=== PATIENT | female | born 1955 | race Caucasian/White ===

== ENCOUNTER → 2016-10-11 | Outpatient (CLI) | payer MEDICARE, BC ==
[2016-10-11 08:01] LABS: Basophils # (A) 0.1 k/uL (0-0.2); Basophils % (A) 1 %; CH 33.6; CHCM 33.4; Eosinophils # (A) 0.2 k/uL (0-0.7); Eosinophils % (A) 4 %; HCT 45.9 % (34.0-46.0); HDW 2.36; HGB 14.9 gm/dL (11.4-16.0); Luc % (Auto) 2; Lymphocytes # (A) 2.3 k/uL (1.0-4.8); Lymphocytes % (A) 53 %; MCH 32.7 pg (25.0-35.0); MCHC 32.4 g/dL (31.0-37.0); MCV 100.9 fL (80.0-100.0); Mean Platelet Volume 8.5; Monocytes # (A) 0.2 k/uL (0-1.0); Monocytes % (A) 5 %; Neutrophils # (A) 1.5 k/uL (1.3-7.7); Neutrophils % (A) 34 %; RBC 4.55 m/uL (3.80-5.40); RDW 12.4 % (11.5-15.5); WBC 4.3 k/uL (3.8-10.6); WBC (Perox) 4.31
[2016-10-11 08:45] LABS: ALT 58 U/L (9-52); AST 35 U/L (14-36); Alkaline Phosphatase 36 U/L (38-126); Anion Gap 9 mmol/L; Blood Urea Nitrogen 17 mg/dL (7-17); Calcium 9.6 mg/dL (8.4-10.2); Carbon Dioxide 33 mmol/L (22-30); Chloride 101 mmol/L (98-107); Cholesterol 191 mg/dL (<200); Glucose 105 mg/dL (74-99); HDL Cholesterol 30 mg/dL (40-60); Non-African American GFR(MDRD) >60 (>60 ml/min/1.73 sqM); Sodium 143 mmol/L (137-145); Total Bilirubin 0.4 mg/dL (0.2-1.3); Total Protein 7.1 g/dL (6.3-8.2)
[2016-10-11 10:24] LABS: Manual Review Performed; RBC Morphology Normal
[2016-10-11 11:49] LABS: Hemoglobin A1C 6.1 % (4.2-6.1)
== END | disposition home or self-care (01) ==
LOC: LABWHC1 06:43
PROVIDERS: ATTEND Internal Medicine Geriatric Medicine
DX: I10 Essential (primary) hypertension (principal); R73.09 Other abnormal glucose; E78.00 Pure hypercholesterolemia, unspecified
CPT/HCPCS: 36415; 80053; 80061; 83036; 84439; 84443; 85025

== ENCOUNTER → 2016-12-11 | Outpatient (CLI) | payer MEDICARE, BC ==
--- NOTE | 2016-12-11 14:58 | US ---
EXAMINATION TYPE: US carotid duplex BILAT DATE OF EXAM: 12/11/2016 COMPARISON: CT neck January 28, 2015 CLINICAL HISTORY: I65.23 Occlusion and stenosis of left carotid artery per order . Left carotid bruit on physical exam EXAM MEASUREMENTS: RIGHT: Peak Systolic Velocity (PSV) cm/sec ----- Right CCA: 90.8 ----- Right ICA: 625.8 ----- Right ECA: 305.8 ICA/CCA ratio: 6.9 RIGHT: End Diastole cm/sec ----- Right CCA: 11.7 ----- Right ICA: 164.1 ----- Right ECA: 0.0 LEFT: Peak Systolic Velocity (PSV) cm/sec ----- Left CCA: 96.8 ----- Left ICA: 180.6 ----- Left ECA: 182.4 ICA/CCA ratio: 1.9 LEFT: End Diastole cm/sec ----- Left CCA: 14.0 ----- Left ICA: 44.5 ----- Left ECA: 16.9 VERTEBRALS (direction of flow): Right Vertebral: Antegrade Left Vertebral: Antegrade Rhythm: Severely increased velocities right ICA. Increased velocities bilateral ECA's, greater on the right. Increased velocities left ICA Grayscale images show mild to moderate peripheral plaque at right carotid bulb extending into proxima l internal carotid artery. Increased velocities in both internal and external carotid arteries is see n. Abnormal ratio is noted. There is moderate to severe peripheral plaque at left carotid bulb. Some increased velocity left internal carotid artery is also identified IMPRESSION: Moderate to severe atherosclerotic change bilaterally, hemodynamically significant steno sis is felt present bilaterally, degree of stenosis is estimated greater than 70% on the right and 50 -69% on the left . Progression of atherotic change from prior CT is felt present. Further investigati on with CTA or MRA of the neck is advised.
== END | disposition home or self-care (01) ==
LOC: RADUSWWP 14:12
PROVIDERS: ATTEND Internal Medicine Geriatric Medicine
DX: I65.23 Occlusion and stenosis of bilateral carotid arteries (principal)
CPT/HCPCS: 93880

== ENCOUNTER → 2017-03-08 | Outpatient (CLI) | payer MEDICARE, BC ==
[2017-03-08 09:56] LABS: Blood Urea Nitrogen 25 mg/dL (7-17)
== END | disposition home or self-care (01) ==
LOC: LABWHC1 09:01
PROVIDERS: ATTEND Psychiatry & Neurology Pain Medicine
DX: G25.0 Essential tremor (principal); M54.5 Low back pain; Z91.041 Radiographic dye allergy status; Z88.0 Allergy status to penicillin; Z88.1 Allergy status to other antibiotic agents; Z88.8 Allergy status to other drugs, medicaments and biological substances
CPT/HCPCS: 36415; 82565; 84520

== ENCOUNTER → 2017-03-11 | Outpatient (CLI) | payer MEDICARE, BC ==
--- NOTE | 2017-03-15 10:02 | MR ---
EXAMINATION TYPE: MR lumbar spine wo con DATE OF EXAM: 03/11/2017 COMPARISON: Outside lumbar spine MRI October 27, 2009. HISTORY: Low back pain per order. Gait abnormality per patient. Pain into both legs per patient. TECHNIQUE: Multiplanar, multisequence imaging of the lumbar spine is performed without IV contrast. FINDINGS: Sagittal images of the lumbar spine show vertebral body heights and alignment to appear sat isfactory. Multilevel disc desiccation is redemonstrated but disc space heights are preserved. No marcelino picious posterior disc herniations are seen on sagittal images. The conus medullaris is normal in pos ition and signal ending mid L1 level. There are multiple small scattered hemangiomas throughout the l umbar spine. Minimal multilevel anterior spurring is seen. Axial images show the T12-L1, L1-L2, L2-L3, and L3-L4 levels to remain within normal limits. Axial images at L4-L5 level redemonstrate mild broad disc bulge and mild facet degenerative changes b ilaterally but spinal canal is preserved and bilateral neural foramina are patent. Axial images at L5-S1 level redemonstrate mild facet degenerative changes bilaterally and mild centra l disc protrusion but spinal canal is preserved and bilateral neural foramina are patent. There are multifocal areas of scarring throughout the visualized left kidney redemonstrated. There ar e several subcentimeter round T2 hyperintense lesions bilaterally felt to reflect simple cysts. IMPRESSION: Some mild degenerative changes lower lumbar spine as detailed above. No significant progr ession from prior outside MRI.
--- NOTE | 2017-03-15 11:50 | MR ---
EXAMINATION TYPE: MR brain wo/w con DATE OF EXAM: 03/11/2017 COMPARISON: Outside brain MRI October 27, 2009. HISTORY: Tremors per order. Full body tremor and dizziness per patient with left-sided weakness and n umbness with history of neurotoxin exposure per patient. TECHNIQUE: Multiplanar, multisequence images of the brain and brainstem is performed without and with IV contras t, utilizing 7.5 mL intravenous Gadavist . FINDINGS: Diffusion weighted images demonstrate no evidence of a recent infarct or other diffusion ab normality. There is no extra-axial fluid collection or significant white matter signal abnormality. The ventricular system and cisternal spaces are normal in size and appearance. The brain volume is age appropriate. Midline structures demonstrate normal morphology. The craniocervical junction appears within normal limits. Post contrast images demonstrate no abnormal enhancement. The dural venous sinuses appear pa tent. The visualized sinuses are clear and the globes are intact. IMPRESSION: Unremarkable study. No significant change from prior. No new suspicious findings identifi ed.
== END | disposition home or self-care (01) ==
LOC: RADMRIMAIN 06:13
PROVIDERS: ATTEND Psychiatry & Neurology Neurology
DX: M47.816 Spondylosis without myelopathy or radiculopathy, lumbar region (principal); G25.0 Essential tremor; Z88.0 Allergy status to penicillin; Z88.1 Allergy status to other antibiotic agents; Z91.041 Radiographic dye allergy status; Z88.8 Allergy status to other drugs, medicaments and biological substances
CPT/HCPCS: 70553; 72148; A9581

== ENCOUNTER → 2017-03-19 | Outpatient (CLI) | payer MEDICARE, BC ==
--- NOTE | 2017-03-19 15:26 | NM ---
EXAMINATION TYPE: NM DatScan Brain SPECT DATE OF EXAM: 03/19/2017 COMPARISON: MRI brain March 11, 2017 HISTORY: Full body Tremor rule out Parkinson's per order. TECHNIQUE: 10 drops of Lugol's solution was administered 1 hour prior to injection as a thyroid bloc lea agent. After the administration of 4.69 mCi I-123 Ioflupane DaTscan. Images obtained 3 hours p ost injection. SPECT images of the brain were acquired with axial and coronal reconstructions. FINDINGS: The DaTSCAN demonstrates normal uptake of tracer throughout the striata. Consequently there is no evidence of loss of the pre-synaptic dopaminergic terminals on this investigation. IMPRESSION: This normal appearance is against a diagnosis of idiopathic Parkinson?s disease (PD) or a Parkinsonian syndrome (PS) and is seen in healthy individuals and also patients with essential tremor (ET), drug induced parkinsonism, and vascular pseudo-parkinsonism.
== END | disposition home or self-care (01) ==
LOC: RADNMMAIN 09:59
PROVIDERS: ATTEND Psychiatry & Neurology Neurology
DX: G25.0 Essential tremor (principal); G21.19 Other drug induced secondary parkinsonism; G21.4 Vascular parkinsonism
CPT/HCPCS: 78607; A9584

== ENCOUNTER → 2020-08-25 | Outpatient (CLI) | payer MEDICARE, BC ==
[2020-08-25 20:07] LABS: ALT 22 U/L (8-44); AST 28 U/L (13-35)
== END | disposition home or self-care (01) ==
LOC: LABWHC1 12:39
PROVIDERS: ATTEND Nurse Practitioner Family
DX: B35.3 Tinea pedis (principal)
CPT/HCPCS: 36415; 84450; 84460

== ENCOUNTER → 2020-09-29 | Outpatient (CLI) | payer MEDICARE, BC ==
[2020-09-29 23:29] LABS: Basophils # (A) 0.06 X 10*3/uL (0.00-0.10); Eosinophils # (A) 0.11 X 10*3/uL (0.04-0.35); Eosinophils % (A) 1.8 %; HGB 13.6 g/dL (12.0-15.0); Lymphocytes # (A) 2.61 X 10*3/uL (0.90-5.00); Lymphocytes % (A) 43.8 %; MCH 32.8 pg (27.0-32.0); MCHC 32.4 g/dL (32.0-37.0); MCV 101.2 fL (80.0-97.0); Mean Platelet Volume 11.8 fL (9.5-12.2); Monocytes # (A) 0.51 X 10*3/uL (0.20-1.00); Monocytes % (A) 8.6 %; Neutrophils # (A) 2.66 X 10*3/uL (1.80-7.70); Neutrophils % (A) 44.6 %; Platelet Count 302 X 10*3/uL (140-440); RBC 4.15 X 10*6/uL (4.10-5.20); RDW 11.6 % (11.5-14.5); WBC 5.96 X 10*3/uL (4.50-10.00)
[2020-09-30 13:59] LABS: African American GFR (CKD) 68.9 (60.0-200.0); Non-African American GFR(CKD) 59.5 (60.0-200.0)
== END | disposition home or self-care (01) ==
LOC: LABWHC1 15:37
PROVIDERS: ATTEND Nurse Practitioner Family
DX: B35.3 Tinea pedis (principal)
CPT/HCPCS: 36415; 82565; 84450; 84460; 84520; 85025

== ENCOUNTER → 2023-05-08 | Outpatient (CLI) | payer MEDICARE, BC ==
[2023-05-08 13:04] LABS: African American GFR (CKD) >90 (>60 ml/min/1.73 sqM); Blood Urea Nitrogen 27 mg/dL (7-17); Non-African American GFR(CKD) >90 (>60 ml/min/1.73 sqM)
--- NOTE | 2023-05-08 13:56 | CT ---
EXAMINATION TYPE: CT lumbar spine w con CT DLP: 570.1 mGycm, Automated exposure control for dose reduction was used. DATE OF EXAM: 05/08/2023 1:32 PM COMPARISON: None. CLINICAL INDICATION:Female, 67 years old with history of M48.07 SPINAL STENOSIS, LUMBOSACRAL REGION; PHH, lower back pain TECHNIQUE: Multiple axial images were obtained from the midportion of T11 through the sacroiliac therese nts. Soft tissue and bone windows in coronal and sagittal planes were obtained and reviewed. 3-D ref ormats of the bones were created on a separate workstation and submitted for review. Contrast used:100 mL of Isovue 300 with IV Contrast, none. Oral contrast used: none. FINDINGS: Alignment: There are 5 lumbar type vertebral bodies within normal alignment. Bone: Compression deformity of L5 vertebral body with approximately 25% height loss. No significant r etropulsion is identified in this region. Discs: Mild multilevel degenerative changes are appreciated. T12-L1: No spinal canal or neural foraminal stenosis is identified. L1-L2: No spinal canal or neural foraminal stenosis is identified. L2-L3: No spinal canal or neural foraminal stenosis is identified. L3-L4: Broad-based disc bulge is identified with mild facet arthropathy. There is mild spinal canal s tenosis. The neural foramina remain patent. L4-L5: Broad-based disc bulge and facet arthropathy is identified. There is mild spinal canal stenosi s. Mild bilateral neural foraminal stenosis. L5-S1: Broad-based disc bulge is identified. The spinal canal is patent. Mild bilateral neural forami nal stenosis. IMPRESSION: 1. Age-indeterminate compression deformity of L5 vertebral body with approximately 25% height loss. 2. Mild multilevel degenerative changes creating up to mild spinal and neural foraminal stenosis.
== END | disposition home or self-care (01) ==
LOC: RADCTMAIN 12:28
PROVIDERS: ATTEND Internal Medicine Geriatric Medicine
DX: M47.816 Spondylosis without myelopathy or radiculopathy, lumbar region (principal); M48.061 Spinal stenosis, lumbar region without neurogenic claudication; M48.56XA Collapsed vertebra, not elsewhere classified, lumbar region, initial encounter for fracture; M99.73 Connective tissue and disc stenosis of intervertebral foramina of lumbar region
CPT/HCPCS: 82565; 84520; 72132; 36415; Q9967

== ENCOUNTER → 2023-05-15 | Outpatient (CLI) | payer MEDICARE, BC ==
--- NOTE | 2023-05-15 10:34 | XR ---
EXAMINATION TYPE: XR chest 2V DATE OF EXAM: 05/15/2023 COMPARISON: None INDICATION: Chest pain history of COPD TECHNIQUE: Frontal and lateral views of the chest are obtained. FINDINGS: The heart size is normal. The pulmonary vasculature is normal. The lungs are clear. IMPRESSION: 1. No acute pulmonary process.
== END | disposition home or self-care (01) ==
LOC: RADXRMAIN 08:23
PROVIDERS: ATTEND Internal Medicine Geriatric Medicine
DX: J44.9 Chronic obstructive pulmonary disease, unspecified (principal); R07.9 Chest pain, unspecified
CPT/HCPCS: 71046